=== PATIENT | female | born 1995 | race Two or more races ===

== ENCOUNTER 2016-08-19 15:19 | Emergency (ER) | payer OTHER ==
--- NOTE | ~2016-08-19 | US67 ---
[facility] A Service of [facility] RADIOLOGY TEXT RESULTS PATIENT: JASON GOLDBERG LOCATION: [place] : 95 UNIT #: [id number] AGE: [address]: Eduarda Pereira SEX: F ORDER DR: [id number] [facility] [place]. [place], [place] [address] [id number] MR#: [id number] #: [id number] NAME: JASON GOLDBERG : 1995 SEX: F STUDY DATE/TIME: 08/19/2016 17:08 UNIT: CFTX ROOM: STUDY DESCRIPTION: Gallbladder Attending Physician: Eduarda Pereira P.A.-C. Ordering Physician: Eduarda Pereira P.A.-C. Primary Care Physician: Radha Jo M.D. MEDICAL IMAGING REPORT This report is preliminary unless electronic signature is present EXAM Gallbladder ultrasound 08/19/2016 INDICATIONS 21-year-old female with abdominal pain. Right upper quadrant pain for a day. Nausea and vomiting a hour. TECHNIQUE Sonographic imaging right quadrant was performed. COMPARISON STUDIES CT 10/11/2014. FINDINGS Visualized pancreas unremarkable. Liver measures 14.6 cm long axis. There is no ascites or focal liver mass. Right kidney is non-obstructed measures 11.3 cm long axis. The gallbladder demonstrates multiple shadowing stones. No wall thickening or pericholecystic fluid. No sonographic Fajardo's sign was described. Extrahepatic common bile duct is top normal in diameter at 6 mm. IMPRESSION 1. Cholelithiasis without additional ultrasound evidence of acute cholecystitis at this time. 2. Extrahepatic common bile duct is top normal in diameter at 6 mm. Dictated by... Dwayne Monk M.D. [facility] A Service [facility] RADIOLOGY TEXT RESULTS PATIENT: JASON GOLDBERG LOCATION: CFTX : 95 UNIT #: [id number] AGE: [address]: Eduarda Pereira SEX: F ORDER DR: THIS IS AN ELECTRONICALLY VERIFIED REPORT Dwayne Monk M.D. at 08/19/2016 11:38 PM EMMA/ricardo TD: 08/19/2016 20:50 JOB #: [id number] MEDICAL IMAGING REPORT Page 1 of 1 COPY
[~2016-08-19 15:19] MED LIST: CIPRO PO; DOCUSATE SODIU100 MG PO; NORCO 7.5-3251 EACH PO; PRENATAL1 TA1 PO; SINGULAIR PO
[2016-08-19 16:12] LABS: URINE SOURCE CLEAN CATCH
[2016-08-19 16:22] LABS: BASOPHIL# 0.1 X10e3 (0-0.3); BASOPHIL% 0.6 % (0-2.5); EOSINOPHIL# 0.1 X10e3 (0-0.7); EOSINOPHIL% 1.1 % (0.0-7.0); HEMATOCRIT 41.6 % (35.0-45.0); HEMOGLOBIN 13.6 gm/dL (12.0-16.0); LYMPHOCYTE# 1.8 X10e3 (1.0-3.5); LYMPHOCYTE% 17.2 % (17.0-45.0); MEAN CORPUSCULAR HEMOGLOBIN 28.8 PG (28-34); MEAN CORPUSCULAR HGB CONC 32.8 g/dL (30-36); MEAN PLATELET VOLUME 9.2 FL (6.5-11.5); MONOCYTE# 0.6 X10e3 (0-1.0); MONOCYTE% 5.7 % (3.0-12.0); NEUTROPHIL# 7.9 X10e3 (1.5-7.1); NEUTROPHIL% 75.4 % (40-75); PLATELET COUNT 321 X10e3 (140-420); RED BLOOD COUNT 4.73 X10e (3.90-5.30); RED CELL DISTRIBUTION WIDTH 13.6 % (11.0-15.5); WHITE BLOOD COUNT 10.4 X10e3 (4.0-10.5)
[2016-08-19 16:25] LABS: DIFF IND NO
[2016-08-19 16:27] LABS: URINE APPEARANCE TURBID; URINE BLOOD 3+ (NEG); URINE COLOR RED; URINE GLUCOSE NEG (NEG); URINE KETONE NEG (NEG); URINE LEUKOCYTE ESTERASE 1+ (NEG); URINE NITRATE NEG (NEG); URINE PROTEIN 2+ (NEG); URINE SPECIFIC GRAVITY 1.032 (1.003-1.035)
[2016-08-19 16:30] LABS: CULTURE INDICATED? YES; URBCS1 AUWI INNUM /[HPF] (0-2); URINE BACTERIA AUWI 2+ (NEGATIVE); URINE SQUAMOUS EPITHELIAL CELL MANY /[HPF]
[2016-08-19 16:40] LABS: URINE BILIRUBIN NEG (NEG)
[2016-08-19 16:46] LABS: BILIRUBIN, DIRECT 0.1 mg/dL (0.0-0.2); BILIRUBIN,INDIRECT 0.2 mg/dL (0.0-0.9); BILIRUBIN,TOTAL 0.3 mg/dL (0.2-2.0); BUN/CREATININE RATIO 24.28; CALCIUM SERUM 9.5 mg/dL (8.4-10.2); CREATININE SERUM 0.7 mg/dL (0.6-1.4); GLOM FILT RATE Estimated 123.9 mL/min (>60); POTASSIUM 3.8 mmol/L (3.5-5.1); PROTEIN TOTAL SERUM 7.9 g/dL (6.0-8.3)
== END 2016-08-19 18:05 | disposition home or self-care (01) ==
LOC: CFTX 15:19 → CED 15:19 → CFTX 16:07
DX: K80.70 Calculus of gallbladder and bile duct without cholecystitis without obstruction (principal); N30.00 Acute cystitis without hematuria; Z90.49 Acquired absence of other specified parts of digestive tract; Z98.890 Other specified postprocedural states
CPT/HCPCS: 36415; 76705; 80048; 80076; 81003; 83690; 85025; 87086; 96374; 96375; 99284; J1885; J2405

== ENCOUNTER → 2016-09-13 | Outpatient (CLI) | payer OTHER ==
[2016-09-13 14:18] LABS: HEMATOCRIT 38.2 % (35.0-45.0); HEMOGLOBIN 12.7 gm/dL (12.0-16.0); MEAN CELL VOLUME 87.9 FL (83-96); MEAN CORPUSCULAR HEMOGLOBIN 29.2 PG (28-34); MEAN CORPUSCULAR HGB CONC 33.2 g/dL (30-36); MEAN PLATELET VOLUME 8.3 FL (6.5-11.5); RED BLOOD COUNT 4.34 X10e (3.90-5.30); RED CELL DISTRIBUTION WIDTH 13.9 % (11.0-15.5)
[2016-09-13 15:29] LABS: ALBUMIN SERUM 3.8 g/dL (3.5-5.0); ALKALINE PHOSPHATASE 109 U/L (32-92); ALT (SGPT) 17 U/L (10-40); AST (SGOT) 13 U/L (10-42); BLOOD UREA NITROGEN 11 mg/dL (9-23); BUN/CREATININE RATIO 15.71; CALCIUM SERUM 9.7 mg/dL (8.4-10.2); CARBON DIOXIDE 28 mmol/L (22-31); CHLORIDE 103 mmol/L (100-111); CREATININE SERUM 0.7 mg/dL (0.6-1.4); GLOM FILT RATE Estimated 123.9 mL/min (>60); GLUCOSE FASTING 95 mg/dL (70-110); POTASSIUM 4.3 mmol/L (3.5-5.1); PROTEIN TOTAL SERUM 7.2 g/dL (6.0-8.3); SODIUM 138 mmol/L (135-145)
[2016-09-13 15:33] LABS: BILIRUBIN,TOTAL <0.1 mg/dL (0.2-2.0)
== END | disposition home or self-care (01) ==
LOC: CLAB 13:45
PROVIDERS: Specialist
DX: R10.11 Right upper quadrant pain (principal)
CPT/HCPCS: 36415; 80053; 85027